=== PATIENT | female | born 1930 | race Caucasian/White ===

== ENCOUNTER → 2017-09-18 | Outpatient (CLI) | payer MEDICARE, OTHER ==
[~2017-09-18] MED LIST: ALBU90OI61 INH; AMLO5 PO; ASPI81EC PO; AZIT250 PO; Amikacin S250 MG/11 INH; Ativan1 MG PO; BUDE6HFA INH; CALCAVITD PO; CALCIUM/VITAMIN D PO; CEFD300 PO; CEPH500 PO; CLAR250 PO; CLOFAZIMINE1 GM PO; CONEST.625; CONEST.625 PO; Cheratussin AC118 ML PO; DIPATR PO; ETHA400 PO; FISH1000 PO; HYDCHL12.5 PO; HYDCHL25 PO; LORA1 PO; LORA2; LORA2 PO; LORPSEER12 PO; LOSA50 PO; LOSHYD; LOSHYD PO; LOSHYD100 PO; MECL12.5 PO; MELA3 PO; MIRT30 PO; MOXI400; MYCOBUTIN PO; MYLAN PO; Macrobid 100 M100 MG PO; Melatonin5 M1 PO; Mucinex600 MG PO; NADO20; NADOLOL PO; Norco 5-325 Ta1 EACH PO; ONDA4 PO; PHENY100ER PO; PHENYTOIN SODI200 MG PO; POTASSIUM GLUCONATE PO; Phenytoin Sodi100 MG PO; Prednisone20 MG PO; QUET100 PO; RAME8 PO; SPACE CHAMBER1 EACH MC; SULTRIDS PO; TOCO1000 PO; TOCO400; VITAMIN D-32000 UNI1 PO; Vibramycin100 MG PO; Zithromax250 MG PO; [UNRECOGNIZED DRUG - OTHER]; [UNRECOGNIZED DRUG - OTHER] PO
== END | disposition home or self-care (01) ==
LOC: OLS 14:02
DX: J47.9 Bronchiectasis, uncomplicated (principal); R05 Cough
CPT/HCPCS: 87070; 87077; 87147; 87186; 87205

== ENCOUNTER 2018-09-06 15:52 | Inpatient (IN) | payer MEDICARE, OTHER ==
[~2018-09-06] VITALS: Ht 154.9 cm; Wt 47.7 kg
[~2018-09-06 15:52] MED LIST changes: +ASPI81CH PO; -ASPI81EC PO
[2018-09-06 17:13] LABS: BASOPHILS ABSOLUTE AUTO 0.05 K/mm3 (0.00-0.23); BASOPHILS PERCENT AUTO 0 % (0-2); EOSINOPHILS PERCENT AUTO 0 % (0-6); Hematocrit 32.4 % (33.0-51.0); Hemoglobin 10.6 g/dL (11.5-16.0); IMMATURE GRAN ABSOLUTE AUTO 0.22 K/mm3 (0.00-0.10); IMMATURE GRAN PERCENT AUTO 1 % (0-1); LYMPHOCYTES ABSOLUTE AUTO 1.41 K/mm3 (0.84-5.20); LYMPHOCYTES PERCENT AUTO 5 % (21-46); MONOCYTES ABSOLUTE AUTO 1.88 K/mm3 (0.16-1.47); MONOCYTES PERCENT AUTO 7 % (4-13); Mean Corpuscular HGB 32.1 pg (26.0-34.0); Mean Corpuscular HGB Conc 32.7 g/dL (31.5-36.5); Mean Corpuscular Volume 98 fL (80-100); Mean Platelet Volume 10.9 fL (9.1-12.4); NEUTROPHILS ABSOLUTE AUTO 24.99 K/mm3 (1.96-9.15); NEUTROPHILS PERCENT AUTO 88 % (41-73); Platelet Count 609 K/mm3 (150-400); RDW Coefficient Variation 12.6 % (11.7-14.2); RDW Standard Deviation 45.3 fL (35.1-46.3); White Blood Cell Count 28.55 K/mm3 (4.00-11.30)
[2018-09-06 17:22] LABS: Source, Urine Clean Catch
[2018-09-06 17:35] LABS: Alanine Aminotransfer (ALT/SGP 48 U/L (12-78); Albumin, Blood 2.7 g/dL (3.4-5.0); Albumin/Globulin Ratio 0.5 (0.8-1.8); Alk Phos 237 U/L (50-136); Anion Gap 7 mmol/L (6-16); Aspartate Aminotrans (AST/SGOT 59 U/L (12-37); Bilirubin, Total 0.5 mg/dL (0.1-1.0); Blood Urea Nitrogen 22 mg/dL (8-24); Bun/Creatinine Ratio 27.9 (12.0-20.0); CO2, Blood 28 mmol/L (21-32); Calcium, Blood 8.9 mg/dL (8.5-10.1); Chloride, Blood 109 mmol/L (98-108); Creatinine, Blood 0.79 mg/dL (0.40-1.00); Glomerular Filtration Rate >60 (60-); Glucose, Blood 175 mg/dL (70-99); Potassium, Blood 3.4 mmol/L (3.5-5.5); Sodium, Blood 144 mmol/L (136-145); Total Protein, Blood 7.7 g/dL (6.4-8.2)
[2018-09-06 17:37] LABS: Appearance, Urine Clear (Clear); Blood, Urine 1+ (Neg); Color, Urine Amber (P-Yellow); Glucose Qualitative, Urine Neg (Neg); Ketones, Urine 1+ (Neg); Leukocyte Esterase, Urine 3+ (Neg); Nitrite, Urine Neg (Neg); Protein, Urine 3+ (Neg); Urobilinogen, Urine 2+ (Normal)
[2018-09-06 17:43] LABS: BASOPHILS PERCENT MAN 0 % (0-2); EOSINOPHILS PERCENT MAN 0 % (0-6); LYMPHOCYTES ABSOLUTE MAN 1.99 K/mm3 (0.84-5.20); LYMPHOCYTES PERCENT MAN 7 % (21-46); METAMYELOCYTE ABSOLUTE MAN 0.28 K/mm3 (0.00-0.00); METAMYELOCYTE PERCENT MAN 1 % (0-0); MONOCYTES ABSOLUTE MAN 1.71 K/mm3 (0.16-1.47); MONOCYTES PERCENT MAN 6 % (4-13); NEUTROPHILS ABSOLUTE MAN 24.55 K/mm3 (1.96-9.15); SEG NEUTROPHILS PERCENT MAN 86 % (41-73); TOTAL CELLS COUNTED 100
[2018-09-06 17:47] LABS: Bilirubin, Urine 1+ (Neg)
[2018-09-06 17:48] LABS: Bacteria Many /hpf; Mucus Mod ({null, 0-Heavy}); Squamous Epithelial Cells Few /hpf (Few)
[2018-09-06] MEDS ORDERED: SERT100 PO (19:14)
[2018-09-06] MEDS ORDERED: LOSA50 (19:14)
[2018-09-06 19:48] LABS: International Normalized Ratio 1.36; Prothrombin Time Results 13.8 Sec (9.7-11.5)
--- NOTE | 2018-09-07 04:35 | NUR ---
SHIFT SUMMARY PT ER ADMIT THIS SHIFT FOR UTI. PT ALERT AND ORINTED TO SELF, FAMILY, PLACE, AND FOLLOWING DIRECTIONS. PT UANBLE TO STATE YEAR, AND IS EASILY FORGETFUL. PT UP TO THE BATHROOM USING THE FWW WITH 1 PA. GAIT IS WEAK AND SLIGHTLY UNSTEADY. SOB WITH EXERTION. PRODUCITVE COUGH WITH THICK YELLOW SPUTUM. LUNGS DIMINISHED. IVF INFUSING ORDERED. PT VOIDING WITHOUT DIFFICULTY. PT PUSHES CALL LIGHT FREQUENTLY AND ASKS FOR VARIOUS THINGS. DOES NOT CALL WHEN NEEDING TO GO TO THE BATHROOM AND WILL JUST JUMP OUT OF BED. BED ALARM IN PLACE. HELP DESK SUPPORT SPECIALIST MADE AWARE FOR POSSIBLE SCU PLACEMENT. ADMISSION COMPLETE. WILL CONTINUE TO MONITOR AND REPORT TO ONCOMING RN.
[2018-09-07 04:51] LABS: BASOPHILS ABSOLUTE AUTO 0.03 K/mm3 (0.00-0.23); BASOPHILS PERCENT AUTO 0 % (0-2); EOSINOPHILS PERCENT AUTO 0 % (0-6); Hematocrit 26.2 % (33.0-51.0); Hemoglobin 8.7 g/dL (11.5-16.0); IMMATURE GRAN ABSOLUTE AUTO 0.19 K/mm3 (0.00-0.10); IMMATURE GRAN PERCENT AUTO 1 % (0-1); LYMPHOCYTES ABSOLUTE AUTO 1.75 K/mm3 (0.84-5.20); LYMPHOCYTES PERCENT AUTO 8 % (21-46); MONOCYTES ABSOLUTE AUTO 2.14 K/mm3 (0.16-1.47); MONOCYTES PERCENT AUTO 9 % (4-13); Mean Corpuscular HGB 32.1 pg (26.0-34.0); Mean Corpuscular HGB Conc 33.2 g/dL (31.5-36.5); Mean Corpuscular Volume 97 fL (80-100); Mean Platelet Volume 11.6 fL (9.1-12.4); NEUTROPHILS ABSOLUTE AUTO 18.72 K/mm3 (1.96-9.15); NEUTROPHILS PERCENT AUTO 82 % (41-73); Platelet Count 515 K/mm3 (150-400); RDW Coefficient Variation 12.5 % (11.7-14.2); RDW Standard Deviation 43.6 fL (35.1-46.3); Red Blood Cell Count 2.71 M/mm3 (3.80-5.20); White Blood Cell Count 22.83 K/mm3 (4.00-11.30)
[2018-09-07 05:24] LABS: Anion Gap 7 mmol/L (6-16); Blood Urea Nitrogen 17 mg/dL (8-24); Bun/Creatinine Ratio 26.2 (12.0-20.0); CO2, Blood 25 mmol/L (21-32); Calcium, Blood 7.9 mg/dL (8.5-10.1); Chloride, Blood 114 mmol/L (98-108); Creatinine, Blood 0.65 mg/dL (0.40-1.00); Glomerular Filtration Rate >60 (60-); Glucose, Blood 157 mg/dL (70-99); Potassium, Blood 3.5 mmol/L (3.5-5.5); Sodium, Blood 146 mmol/L (136-145)
[2018-09-07 11:34] LABS: Adenovirus F 40/41 Not Detected (NOT DETECT); Astrovirus Not Detected (NOT DETECT); Campylobacter Sp Not Detected (NOT DETECT); Cryptosporidium Not Detected (NOT DETECT); Cyclospora Cayetanensis Not Detected (NOT DETECT); E. Coli O157 Not Detected (NOT DETECT); Entamoeba Histolytica Not Detected (NOT DETECT); Enteroaggregative E. coli-EAEC Not Detected (NOT DETECT); Enteropathogenic E. coli-EPEC Not Detected (NOT DETECT); Enterotoxigenic E. coli-ETEC Not Detected (NOT DETECT); Giardia Lamblia Not Detected (NOT DETECT); Norovirus GI/GII Not Detected (NOT DETECT); Plesiomonas Shigelloides Not Detected (NOT DETECT); Rotavirus A Not Detected (NOT DETECT); Salmonella Sp Not Detected (NOT DETECT); Sapovirus Not Detected (NOT DETECT); Shiga Toxin-prod E. coli-STEC Not Detected (NOT DETECT); Shigella/Enteroin E. coli-EIEC Not Detected (NOT DETECT); Vibrio Cholerae Not Detected (NOT DETECT); Vibrio Sp Not Detected (NOT DETECT); Yersinia Enterocolitica Not Detected (NOT DETECT)
--- NOTE | 2018-09-07 17:32 | NUR ---
NO ACUTE CHANGES NOTED THIS SHIFT. PT IS VERY PLEASANT AND MILDLY CONFUSED. VERY IMPULSIVE, GETTING OOB WITHOUT CALLING. PT IS UNSTEADY ON HER FEET AND HAS BEEN FALLING FREQUENTLY AT HOME. BED ALARM ARMED. PT'S DAUGHTER IN ROOM EARLY AFTERNOON AND PT MUCH CALMER WHILE DAUGHTER AT BEDSIDE. NO C/O OF PAIN, DAUGHTER REQUESTED BREATHING TREATMENTS FROM DR SÁNCHEZ. PT UP IN CHAIR WAITING FOR DINNER, CHAIR ALARM IN PLACE. WILL CONTINUE TO MONITOR AND REPORT TO ONCOMING RN
--- NOTE | 2018-09-07 18:10 | NUR ---
HOME MEDICATION DAUGHTER BROUGHT PT HOME MEDICATION CLOFAZIMINE IN, ORDER OBTAINED FROM DR SÁNCHEZ FOR HER TO USE PER HOME. SENT TO PHARMACY FOR VERIFICATION AND PT RECEIVED MED WITH HER DINNER
--- NOTE | 2018-09-07 22:16 | NUR ---
STATUS UPDATE PATIENT UNABLE TO BE ORIENTED TO CALL LIGHT USE. DISCUSSED WITH HOSPITALIST AND MAY PLACE IN [facility]I IF PATIENT BECOMES UNSAFE. PATIENT VERY LIGHT SO BED ALARM SETS OFF WHEN SHE READJUSTS POSITION. PLACED ON LOWEST SENSITIVITY AND SITTING OUTSIDE ROOM. WILL CONTINUE TO MONITOR.
--- NOTE | 2018-09-08 04:45 | NUR ---
STATUS UPDATE PATIENT SLEPT OFF AND ON THROUGH THE NIGHT. HAS PERIODS OF CONFUSION WHEN SHE WAKES TO WHERE SHE WANTS TO GO BACK TO HER DAUGHTERS HOUSE AND CAN'T BE REORIENTED. IS EASY TO REDIRECT UNLESS HYPERFOCUSED. GIVEN ATIVAN DUE TO FREQUENCY OF GETTING OUT OF BED UNSAFELY AND CONFUSION. PATIENT CONVINCED IT WAS TIME TO START THE DAY AND TAKE HER 0800 MEDICATIONS REGARDLESS OF TIME. WILL CONTINUE TO MONITOR.
--- NOTE | 2018-09-08 05:24 | NUR ---
SHIFT SUMMARY PATIENT SLEPT OFF AND ON THROUGH THE NIGHT. RECEIVED ORDER FOR ASHANTI VEST BUT WAS ABLE TO REDIRECT PATIENT AND HAVE NOT NEEDED TO PLACE IT AT THIS TIME. PLAN THAT WAS DISCUSSED WITH DAUGHTER PREVIOUSLY WAS TO PLACE IN BACK [place] BUT UNABLE TO ACCOMODATE THAT PLAN. PATIENT GIVEN ATIVAN DUE TO CONFUSION AND HYPERFOCUSING ON TURNING THE LIGHT IN THE HALLWAY OFF. STATES SHE CAN'T SLEEP ANYMORE WITH IT ON. TOLERATED WELL. WILL PASS ON FOR DAY SHIFT TO DISCUSS WITH DAUGHTER USE OF ASHANTI VEST IF MOM CONTINUES TO BE UNSAFE AT NIGHT. NO QUESTIONS OR CONCERNS MENTIONED BY DAUGHTER OR PATIENT DURING SHIFT. WILL CONTINUE TO MONITOR UNTIL SHIFT HANDOFF.
[2018-09-08 05:28] LABS: BASOPHILS ABSOLUTE AUTO 0.04 K/mm3 (0.00-0.23); BASOPHILS PERCENT AUTO 0 % (0-2); EOSINOPHILS ABSOLUTE AUTO 0.13 K/mm3 (0.00-0.68); EOSINOPHILS PERCENT AUTO 1 % (0-6); Hematocrit 28.5 % (33.0-51.0); Hemoglobin 9.3 g/dL (11.5-16.0); IMMATURE GRAN ABSOLUTE AUTO 0.17 K/mm3 (0.00-0.10); IMMATURE GRAN PERCENT AUTO 1 % (0-1); LYMPHOCYTES ABSOLUTE AUTO 2.52 K/mm3 (0.84-5.20); LYMPHOCYTES PERCENT AUTO 15 % (21-46); MONOCYTES ABSOLUTE AUTO 1.19 K/mm3 (0.16-1.47); MONOCYTES PERCENT AUTO 7 % (4-13); Mean Corpuscular HGB 31.6 pg (26.0-34.0); Mean Corpuscular HGB Conc 32.6 g/dL (31.5-36.5); Mean Corpuscular Volume 97 fL (80-100); Mean Platelet Volume 11.8 fL (9.1-12.4); NEUTROPHILS ABSOLUTE AUTO 13.28 K/mm3 (1.96-9.15); NEUTROPHILS PERCENT AUTO 77 % (41-73); Platelet Count 606 K/mm3 (150-400); RDW Coefficient Variation 12.6 % (11.7-14.2); RDW Standard Deviation 44.8 fL (35.1-46.3); Red Blood Cell Count 2.94 M/mm3 (3.80-5.20); White Blood Cell Count 17.33 K/mm3 (4.00-11.30)
[2018-09-08 05:56] LABS: Anion Gap 8 mmol/L (6-16); Blood Urea Nitrogen 16 mg/dL (8-24); Bun/Creatinine Ratio 25.3 (12.0-20.0); CO2, Blood 24 mmol/L (21-32); Calcium, Blood 8.2 mg/dL (8.5-10.1); Chloride, Blood 112 mmol/L (98-108); Creatinine, Blood 0.63 mg/dL (0.40-1.00); Glomerular Filtration Rate >60 (60-); Glucose, Blood 116 mg/dL (70-99); Potassium, Blood 3.5 mmol/L (3.5-5.5); Sodium, Blood 144 mmol/L (136-145)
[2018-09-08] MEDS ORDERED: CEPH500 PO (15:07)
--- NOTE | 2018-09-08 15:25 | NUR ---
PT DISCHARGED AT 1530 WITH DAUGHTER TO TRANSPORT. PT HAS IMPROVED A LOT FORM THIS AM. PT STRUGGLING START OF SHIFT TO GIVE DATE BECAME MUCH MORE ALERT AND WAS AOX4 PRIOR TO LEAVING. TRANSFERING WITH WALKER VERY WELL AND WAS CALLING APPROPRIATLEY WHEN NEEDING HELP. ALL PAPERS REVIEWED AND EDUCTIONAL MATERIAL SENT. AID ESCORTED PT OUT TO S ENTRANCE IN WHEEL CHAIR. NO DISTRESS NOTED.
[2018-10-14] MEDS ORDERED: LORA1 PO (23:37)
[2018-10-14] MEDS ORDERED: CHOL10002 PO (23:39)
[2018-10-14] MEDS ORDERED: Hair, Skin & N1 EACH PO (23:40)
[2018-10-14] MEDS ORDERED: Calcium 600 +1 EAC1 PO (23:41)
[2018-10-14] MEDS ORDERED: AMIKACIN SULFATE INH (23:42)
[2018-10-19] MEDS ORDERED: ROBITUSSIN COU237 ML PO (10:59)
[2018-10-19] MEDS ORDERED: VANCOMYCIN HCL750 MG IV (10:59)
[2018-10-19] MEDS ORDERED: DOXY100 PO (11:00)
[2018-11-03] MEDS ORDERED: ONDA4ODT MM (00:13)
== END 2018-09-08 15:23 | disposition home or self-care (01) | DRG 689 ==
LOC: ER 15:52 → MEDS 20:54 → ER 21:53 → MEDS 21:53 → ENPENDDIS 09-08 12:00 → MEDS 09-08 15:23
PROVIDERS: Hospitalist; Physician Assistant; ADMIT Hospitalist
DX: N39.0 Urinary tract infection, site not specified (principal); G92 Toxic encephalopathy; A31.0 Pulmonary mycobacterial infection; I10 Essential (primary) hypertension; F03.90 Unspecified dementia, unspecified severity, without behavioral disturbance, psychotic disturbance, mood disturbance, and anxiety; F32.9 Major depressive disorder, single episode, unspecified; E78.5 Hyperlipidemia, unspecified; Z91.81 History of falling; B95.2 Enterococcus as the cause of diseases classified elsewhere
CPT/HCPCS: 36415; 71046; 80048; 80053; 81001; 83605; 84484; 85025; 85610; 85730; 87040; 87077; 87086; 87186; 87507; 93005; 93010; 94640; 94760; 96361; 96365; 97116; 97162; 97165; 97530; 99285-25; G8978; G8979; G8987; G8988; J0696; J1650; J7030

== ENCOUNTER 2018-10-14 17:34 | Inpatient (IN) | payer MEDICARE, OTHER ==
[~2018-10-14] VITALS: Ht 154.9 cm; Wt 52.1 kg
[~2018-10-14 17:34] MED LIST changes: +LOSA50; +SERT100 PO
[2018-10-14 18:22] LABS: BASOPHILS ABSOLUTE AUTO 0.06 K/mm3 (0.00-0.23); BASOPHILS PERCENT AUTO 0 % (0-2); EOSINOPHILS ABSOLUTE AUTO 0.04 K/mm3 (0.00-0.68); EOSINOPHILS PERCENT AUTO 0 % (0-6); Hematocrit 27.1 % (33.0-51.0); Hemoglobin 9.1 g/dL (11.5-16.0); IMMATURE GRAN ABSOLUTE AUTO 0.22 K/mm3 (0.00-0.10); IMMATURE GRAN PERCENT AUTO 1 % (0-1); LYMPHOCYTES ABSOLUTE AUTO 1.44 K/mm3 (0.84-5.20); LYMPHOCYTES PERCENT AUTO 6 % (21-46); MONOCYTES ABSOLUTE AUTO 1.83 K/mm3 (0.16-1.47); MONOCYTES PERCENT AUTO 7 % (4-13); Mean Corpuscular HGB Conc 33.6 g/dL (31.5-36.5); Mean Corpuscular Volume 95 fL (80-100); Mean Platelet Volume 10.3 fL (9.1-12.4); NEUTROPHILS ABSOLUTE AUTO 22.54 K/mm3 (1.96-9.15); NEUTROPHILS PERCENT AUTO 86 % (41-73); Platelet Count 561 K/mm3 (150-400); RDW Standard Deviation 49.1 fL (35.1-46.3); Red Blood Cell Count 2.84 M/mm3 (3.80-5.20); White Blood Cell Count 26.13 K/mm3 (4.00-11.30)
[2018-10-14 18:42] LABS: Alanine Aminotransfer (ALT/SGP 42 U/L (12-78); Albumin, Blood 2.1 g/dL (3.4-5.0); Albumin/Globulin Ratio 0.4 (0.8-1.8); Alk Phos 190 U/L (50-136); Anion Gap 8 mmol/L (6-16); Aspartate Aminotrans (AST/SGOT 82 U/L (12-37); Bilirubin, Total 0.3 mg/dL (0.1-1.0); Blood Urea Nitrogen 26 mg/dL (8-24); Bun/Creatinine Ratio 33.5 (12.0-20.0); CO2, Blood 24 mmol/L (21-32); Calcium, Blood 8.1 mg/dL (8.5-10.1); Chloride, Blood 111 mmol/L (98-108); Creatinine, Blood 0.78 mg/dL (0.40-1.00); Globulin, Blood 4.7 g/dL (2.2-4.0); Glomerular Filtration Rate >60 (60-); Glucose, Blood 180 mg/dL (70-99); Potassium, Blood 3.8 mmol/L (3.5-5.5); Sodium, Blood 143 mmol/L (136-145); Total Protein, Blood 6.8 g/dL (6.4-8.2)
[2018-10-14 19:33] LABS: Influenza A Negative (NEGATIVE); Influenza B Negative (NEGATIVE)
[2018-10-14 20:08] LABS: Source, Urine Clean Catch
[2018-10-14 20:52] LABS: Appearance, Urine Clear (Clear); Bilirubin, Urine Neg (Neg); Blood, Urine Neg (Neg); Color, Urine Yellow (P-Yellow); Glucose Qualitative, Urine Neg (Neg); Ketones, Urine Neg (Neg); Leukocyte Esterase, Urine 3+ (Neg); Nitrite, Urine Neg (Neg); Protein, Urine 2+ (Neg); Urobilinogen, Urine 1+ (Normal)
[2018-10-14 21:03] LABS: Bacteria Rare /hpf; Red Blood Cells, Urine Not Seen /hpf (0-2); Squamous Epithelial Cells Few /hpf (Few)
[2018-10-14] MEDS ORDERED: LORA1 PO ×2 (23:37)
[2018-10-14] MEDS ORDERED: CHOL10002 PO ×2 (23:39)
[2018-10-14] MEDS ORDERED: Hair, Skin & N1 EACH PO ×2 (23:40)
[2018-10-14] MEDS ORDERED: Calcium 600 +1 EAC1 PO ×2 (23:41)
[2018-10-14] MEDS ORDERED: AMIKACIN SULFATE INH ×2 (23:42)
--- NOTE | 2018-10-14 23:50 | NUR ---
UNABLE TO COMMENCE MRSA CLEARING PROTOCOL D/T PT BEING PART OF A TRIAL AT [facility] REQUIRING [facility] ANTIBIOTIC TX THAT SHE'S CURRENTLY ON. MRSA ISOLATION IN PLACE.
--- NOTE | 2018-10-15 04:38 | NUR ---
T/F AND SUMMARY: REPORT RECIEVED AND PT T/F TO ROOM 327 VIA MELCHOR W/FAMILY AT BEDSIDE. SHE'S A/OX4 BUT FORGETFULL W/CALL LIGHT REITERATTED AND BED ALARM FOR SAFETY. PT HAS HX FALLS W/RECENT LACERATION AND SUTURES W/BRUISING TO L.EYE- BROW AND CHEEKBONE. SHE'S A SBA TO TOILET W/FWW. PT IS PARTICIPANT OF STUDY AT [facility] ON SHELTER HOME ABX RE:LELIA INFECTION R/T TB. CONTACT/DROPLET ISO REQUIRED FOR HX'S OF MRSA BUT NOTHING FUTHER NEEDED FOR RESP INFECTION. PT HAS OCCASIONAL MOIST PRODUCTIVE COUGH W/GONSALES THICK SPUTUM, WILL INQUIRE IF SPECIMEN IS NEEDED BY MD. LS ARE CLEAR AND DIM IN BASES ON RA W/SPO2 WNL. SHE IS TACHYPNEIC AT TIMES W/MILD SOB NOTED W/EXERTION. CT SCHEDULED THIS AM. STAFF UNABLE TO OBTAIN GI PANEL D/T NO BM, WILL ENSURE DAY STAFF ARE AWARE. FAMILY PLANS TO BRING IN HOME MEDS FOR TX OF RESP INFECTION TODAY. SCD'S IN PLACE AND PT NSR AT 70'S PER TELEMETRY. NO ACUTE CHANGES, VSS/AFEBRILE. WILL MONITOR AND REPORT TO DAY RN.
[2018-10-15 05:12] LABS: BASOPHILS ABSOLUTE AUTO 0.06 K/mm3 (0.00-0.23); BASOPHILS PERCENT AUTO 0 % (0-2); EOSINOPHILS PERCENT AUTO 1 % (0-6); Hematocrit 27.8 % (33.0-51.0); Hemoglobin 9.1 g/dL (11.5-16.0); IMMATURE GRAN ABSOLUTE AUTO 0.23 K/mm3 (0.00-0.10); IMMATURE GRAN PERCENT AUTO 1 % (0-1); LYMPHOCYTES ABSOLUTE AUTO 2.25 K/mm3 (0.84-5.20); LYMPHOCYTES PERCENT AUTO 9 % (21-46); MONOCYTES ABSOLUTE AUTO 1.96 K/mm3 (0.16-1.47); MONOCYTES PERCENT AUTO 8 % (4-13); Mean Corpuscular HGB 31.4 pg (26.0-34.0); Mean Corpuscular HGB Conc 32.7 g/dL (31.5-36.5); Mean Corpuscular Volume 96 fL (80-100); Mean Platelet Volume 11.2 fL (9.1-12.4); NEUTROPHILS ABSOLUTE AUTO 19.98 K/mm3 (1.96-9.15); NEUTROPHILS PERCENT AUTO 81 % (41-73); Platelet Count 517 K/mm3 (150-400); RDW Coefficient Variation 14.1 % (11.7-14.2); RDW Standard Deviation 49.7 fL (35.1-46.3); White Blood Cell Count 24.68 K/mm3 (4.00-11.30)
[2018-10-15 05:39] LABS: Anion Gap 7 mmol/L (6-16); Blood Urea Nitrogen 25 mg/dL (8-24); CO2, Blood 27 mmol/L (21-32); Chloride, Blood 113 mmol/L (98-108); Glucose, Blood 123 mg/dL (70-99); Potassium, Blood 3.9 mmol/L (3.5-5.5); Sodium, Blood 147 mmol/L (136-145)
[2018-10-15 07:40] LABS: Bun/Creatinine Ratio 37.4 (12.0-20.0); Creatinine, Blood 0.67 mg/dL (0.40-1.00); Glomerular Filtration Rate >60 (60-)
--- NOTE | 2018-10-15 17:50 | NUR ---
Vivi was alone in room and welcoming of visit. She was pleasantly confused and thought I was someone she knew "from work." She expressed a deep leticia in a loving God and was appreciaitive of prayer and encouragement. We had an easy rapport. I will remain available.
--- NOTE | 2018-10-15 18:57 | NUR ---
PT MOSTLY A/O TODAY WITH PERIODIC EPISODES OF CONFUSION WHERE SHE THOUGHT SHE WAS HEARING HER DAUGHTER NEXT DOOR. DIFFICULT TO REORIENT AT THOSE TIMES. MUCH CALMER WHILE FAMILY IN ROOM. INFECTIOUS DISEASE AND PULMONARY CONSULTS CALLED TODAY. NO ACUTE CHANGES THIS SHIFT, WILL CONTINUE TO MONITOR AND REPORT TO ONCOMING RN.
--- NOTE | 2018-10-15 20:00 | NUR ---
TACHY RR OF 32 W/FAINT RLL EXP WHEEZE: RT NOTIFIED AND AMIKACIN RECIEVED. TEMP NOW 102.1 BUT PT UNDER MULTIPLE BLANKETS IN [facility]: BLANKETS REMOVED, ROOM TEMP MODIFIED AND TYLENOL PRN PROVIDED. PT HYPERTENSIVE WELL AT 168/65 AND SLIGHTLY ANXIOUS W/INCREASED CONFUSION AND DEMENTIA AT BASELINE: SCHEDULED CARDIZEM AND PRN ATIVAN GIVEN. PT ALSO RECIEVED 2100 AZITHROMYCIN AND CLOFAZIMINE. PLAN TO REASSESS VITALS IN 1 HOUR AND PEARL HAND AGRESS TO THIS. SHE IS ASYMPTOMATIC OF ACUTE DISTRESS. WILL NOTIFY MD IF NO IMPROVEMENT OR WORSENING CONDITION OBSERVED.
--- NOTE | 2018-10-15 22:02 | NUR ---
SOME IMPROVEMENT TO VITALS AND NOW VEW SCORE 4: BP 146/67, TEMP 101.4, RR 28, LS CLEAR. MD NOTIFIED OF INTITIAL VITALS AND VEW 5 AND IMPROVED ONES NOW. NO NEW ORDERS RECIEVED.
--- NOTE | 2018-10-15 22:58 | NUR ---
PT SLEEPING W/O S/S DISTRESS. BED ALARM ON FOR SAFETY.
--- NOTE | 2018-10-15 23:28 | NUR ---
VS CONTINUE TO IMPROVE AND VEW NOW 2: TEMP 99.0, RR 22, BP 134/58 AND PT SLEEPING W/O S/S ANXIETY OR DISTRESS. LS CLEAR AND DIM IN BASES. WILL ATTEMPT TO OBTAIN SPUTUM SPECIMEN IF ABLE.
--- NOTE | 2018-10-16 03:10 | NUR ---
SPUTUM SPECIMEN OBTAINED AND SENT BUT ACCIDENTALLY PROCESSED ORDER ON GI PANEL WELL W/O COLLECTION SO IT WAS REORDERED AT THIS TIME. WILL OBTAIN STOOL SPECIMEN IF ABLE BUT PT HASN'T HAD A BM.
--- NOTE | 2018-10-16 04:44 | NUR ---
SUMMARY: PT HAS HAD INCREASED CONFUSION AND HAS BEEN DISORIENTED TO PLACE AND EVENT MOST OF THE NOCTE. FREQ REMINDERS PROVIDED AND BED ALARM ON FOR SAFETY/ IMPULSIVITY OOB TO VOID. ATTENDS CHANGED PRN FOR INCONTINENCE. SHE INITIALLY BEGAN ANXIOUS, TACHYPNEIC (32), FEBRILE (102.1), HYPERTENSIVE (168/65) W/FAINT EXP WHEEZE AND VEW SCORE OF 5. PT IMPROVED T/O NOCTE TO RR 22, TEMP 99.0, BP 134/58 AND CLEAR LS AFTER RECIEVING AMIKACIN, CARDIZEM, PRN TYLENOL, PRN ATIVAN AND SCHEDULED ORAL ABX'S FOR VEW SCORE OF 2. PT SLEPT W/O S/S DISTRESS SINCE. SPUTUM SPECIMEN OBTAINED AND SENT, GONSALES THICK SPUTUM OBSERVED. PT HASN'T HAD BM SO STAFF UNABLE TO COLLECT GI PANEL. IVF INFUSING. AM LABS PENDING. PT HAS DENIED PAIN/COMPLAINTS. NO ACUTE CHANGES. WILL MONITOR/REPORT TO DAY RN.
[2018-10-16 05:33] LABS: Hematocrit 31.1 % (33.0-51.0); Hemoglobin 10.1 g/dL (11.5-16.0); Mean Corpuscular HGB 31.2 pg (26.0-34.0); Mean Corpuscular HGB Conc 32.5 g/dL (31.5-36.5); Mean Corpuscular Volume 96 fL (80-100); Mean Platelet Volume 11.2 fL (9.1-12.4); Platelet Count 609 K/mm3 (150-400); RDW Coefficient Variation 14.1 % (11.7-14.2); RDW Standard Deviation 49.8 fL (35.1-46.3); Red Blood Cell Count 3.24 M/mm3 (3.80-5.20); White Blood Cell Count 29.59 K/mm3 (4.00-11.30)
--- NOTE | 2018-10-16 05:45 | NUR ---
TYLENOL RECIEVED AGAIN FOR TEMP 100.1 AND PT C/O FEELING "COLD". BP ELEVATED TO 188/80 BUT IS POSSIBLY FEBRILE INDUCED. VEW SCORE IS 2 BUT WILL RECHECK VITALS MOMENTARILY FOR MED EFFECT.
[2018-10-16 06:21] LABS: Anion Gap 10 mmol/L (6-16); Blood Urea Nitrogen 12 mg/dL (8-24); Bun/Creatinine Ratio 21.8 (12.0-20.0); CO2, Blood 24 mmol/L (21-32); Calcium, Blood 8.1 mg/dL (8.5-10.1); Chloride, Blood 105 mmol/L (98-108); Creatinine, Blood 0.55 mg/dL (0.40-1.00); Glomerular Filtration Rate >60 (60-); Glucose, Blood 148 mg/dL (70-99); Potassium, Blood 3.8 mmol/L (3.5-5.5); Sodium, Blood 139 mmol/L (136-145)
--- NOTE | 2018-10-16 06:22 | NUR ---
BP IMPROVED TO 133/64 BUT TEMP ROUGHLY THE SAME PRIOR TO RECIEVING TYLENOL, NOW 100.9. SHE WAS GIVEN A BLANKET BY SOMEONE THOUGH WHICH HAS AGAIN BEEN REMOVED. WILL ENSURE DAY STAFF ARE AWARE.
--- NOTE | 2018-10-16 11:50 | NUR ---
Initial palliative care consult: Agueda Ariza is an 88 year old with a history of dementia, HTN, frequent falls, chronic LELIA infection, chronic sinusitis, seizures and anxiety. She is attempted to climb out of bed unassisted when I walked into her room. She is alert and oriented to name and place. She does repeat herself on occasion. Assisted her to the bathroom with a walker. She is impulsive and needs cues to stay inside the walker when she is ambulating. She has fallen at home. Agueda Ariza reports that she lives with her daughter, Precious. She states that her and son have . Her daughter and a few nieces/nephews are her only family per her report. She states that she is normally independent at home and has a wheeled walker with a seat. She reports that she does yard work in the summer and that she shops for groceries and continues to drive. Her ammonia worker in [place] has followed her for 6 yr. She denies any symptoms except "Lots of phlegm." She has a chronic cough productive to clear/white sputum this morning. She denies pain. She denies SOB, however she did appear to be more SOB with exertion after ambulating to the bathroom. When asked about her lung problem, she states "I have a lung disease." We discussed code status and she confirms that she desires to be a full code at this time. She states her daughter knows what she wants and she appeared to become uncomfortable when asked further questions about code status and AD. If would be beneficial to speak with pt's daughter and pt together re: code status. It is difficult to know with pt's history of dementia and her repeating things how much of the history she provided to this creative services writer today is accurate. Nursing reports pt's daughter was at [facility] most of the day yesterday and hasn't been to the hospital so far today. Pt was assisted back to bed with bed alarm on and call light in her reach prior to this creative services writer leaving her room. PC to follow up with pt's daughter to confirm history and functional status at home. Also need to address code status and future care planning.
--- NOTE | 2018-10-16 18:37 | NUR ---
TRANSFER REPORT GIVEN TO TONY MARTINEZ RN AND PT TRANSPORTED TO ROOM 346. FAMILY AT BEDSIDE AND ACCOMPANIED PATIENT.
--- NOTE | 2018-10-16 19:16 | NUR ---
PATIENT ORIENTED TO ROOM. DAUGHTER AT BEDSIDE. PATIENT CURRENTLY RUNNING IV VANCO. WILL CONTINUE TO MONITOR
--- NOTE | 2018-10-17 01:57 | NUR ---
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 DTR HAD BILAT OTHOPEDIC PROCEDURE AND RECIEVED TX FOR MRSA. PT ALERT AND IMPULSIVE WHILE AAWAKE. PULLING OFF TELE MONITOR AND STTEMPTING TO REMOVE HER IV. SHE HAS FALLS FREQUENTLY AT HOME AND HAS SUTURES IN FOREHEAD FROM RECENT FALL. PT IN DROPLET CONTACT ISOLATION FOR LELIA AND MRSA. UA C & S SHOWS NO SIGNIFICANT GROWTH. NO STOOL SINCE ADMISSION MONDAY. ATTEMPTING TO COLLECT GI PANEL. PT DOES HAVE VERY PRODUCTIVE COUGH OF THICK GONSALES STREAKED SPUTUM MODERATE AMOUNT AFTER CHEST PHYSIOTHERAPY. ON ROOM AIR. TEMP WNL TYLENOL AND ATIVAN GIVEN AT FAMILY REQUEST WITH HELPFUL EFFECT. HAD PULMUN CONSULT VERÓNICA MAXWELL SAW PT. INFECTIOUS DISEASE CONSULT PENDING HAS BEEN CALLED. ON TELE MONITOR NSR 75. BP HAS STABILIZED. UP WITH SBA FALL PRECAUTIONS CONTINUE. APPETITE IMPROVED.
--- NOTE | 2018-10-17 03:22 | NUR ---
PT CONTINUES WITH COUGH VERY PRODUCTIVE THICK. STOOL SAMPLE SENT FOR GI PANEL. PT WAS INCONTINENT OF SMALL AMT OF DARK BROWN FORMED STOOL AND URINE,JUMPED UP OUT OF BED ALARM ACTIVATED.FALL PREVENTED.
[2018-10-17 04:34] LABS: Adenovirus F 40/41 Not Detected (NOT DETECT); Astrovirus Not Detected (NOT DETECT); Campylobacter Sp Not Detected (NOT DETECT); Cryptosporidium Not Detected (NOT DETECT); Cyclospora Cayetanensis Not Detected (NOT DETECT); E. Coli O157 Not Detected (NOT DETECT); Entamoeba Histolytica Not Detected (NOT DETECT); Enteroaggregative E. coli-EAEC Not Detected (NOT DETECT); Enteropathogenic E. coli-EPEC Not Detected (NOT DETECT); Enterotoxigenic E. coli-ETEC Not Detected (NOT DETECT); Giardia Lamblia Not Detected (NOT DETECT); Norovirus GI/GII Not Detected (NOT DETECT); Plesiomonas Shigelloides Not Detected (NOT DETECT); Rotavirus A Not Detected (NOT DETECT); Salmonella Sp Not Detected (NOT DETECT); Sapovirus Not Detected (NOT DETECT); Shiga Toxin-prod E. coli-STEC Not Detected (NOT DETECT); Shigella/Enteroin E. coli-EIEC Not Detected (NOT DETECT); Vibrio Cholerae Not Detected (NOT DETECT); Vibrio Sp Not Detected (NOT DETECT); Yersinia Enterocolitica Not Detected (NOT DETECT)
--- NOTE | 2018-10-17 06:25 | NUR ---
PT WITH THICK MUCUS COUGHING AND SPITTING. PROVIDED SPUTUM CUP WITH LID TO CONTAIN SECRETIONS BUT PT USED ONCE AND THEN SPITTING IN KLEENEX AND IN BEDSIDE COMMODE. VERY IMPUSIVE BED ALARM SET OFF MULTIPLE TIMES AND VERY UNSTEADY ON FEET. POOR HYGIENE. CONTINUES IN ISOLATION DROPLET CONTACT WITH EXPOSURE TO SPUTUM TO STAFF POTENTIAL. LUNG MASS SEEN ON CT SCAN.
--- NOTE | 2018-10-17 19:37 | NUR ---
STILL COUGHING UP THICK MUCOUS. PATIENT STATES NO PAIN DURING SHIFT.DAUGHTER AT BEDSIDE DURING DINNER TIME. ONE LOOSE BM THIS SHIFT. PATIENT UP WITH 1 PERSON ASSIST.
--- NOTE | 2018-10-18 06:23 | NUR ---
SHIFT SUMMARY PT AWAKE ON/OFF TO USE BSC, USES CALL LIGHT APPROPRIATELY FOR ASSISTANCE. VSS. NSR W/HR 93 PER TELE CASING SEWER. FOLLOWS DIRECTIONS & IS COOPERATIVE W/CARE. DENIES N/V. REPORTS "ACHY PAIN ALLOVER," UNABLE TO ASSESS USING PAIN SCALE BUT SHOWS MANY NON-VERBAL S/S OF PAIN, MEDICATED 1X W/TYLENOL PER ORDERS & NO FURTHER DISCOMFORT HAS BEEN REPORTED. PT REPORTED SOB 1X LAST NIGHT & STATED SHE FELT "ANXIOUS," MEDICATED 1X W/ATIVAN PER ORDERS & PT NO LONGER REPORTED ANY SOB OR ANXIOUSNESS. CHEST PHYSIOTHERAPY PERFORMED BY RT. PT COUGHING UP A MODERATE AMOUNT OF CLEAR THIN MUCUS AFTERWARDS. CALL LIGHT IS IN REACH & I WILL CONT. TO MONITOR PT UNTIL DAY SHIFT RN ASSUMES CARE.
[2018-10-18 08:35] LABS: Hematocrit 28.3 % (33.0-51.0); Hemoglobin 9.4 g/dL (11.5-16.0); Mean Corpuscular HGB 30.8 pg (26.0-34.0); Mean Corpuscular HGB Conc 33.2 g/dL (31.5-36.5); Mean Platelet Volume 10.8 fL (9.1-12.4); Platelet Count 583 K/mm3 (150-400); RDW Coefficient Variation 13.8 % (11.7-14.2); RDW Standard Deviation 46.4 fL (35.1-46.3); Red Blood Cell Count 3.05 M/mm3 (3.80-5.20); White Blood Cell Count 22.19 K/mm3 (4.00-11.30)
[2018-10-18 08:36] LABS: Mean Corpuscular Volume 93 fL (80-100)
[2018-10-18 16:59] LABS: Vancomycin, Trough 6.6 ug/mL (5.0-10.0)
--- NOTE | 2018-10-18 18:32 | NUR ---
SHIFT SUMMARY NO ACUTE CHANGES THIS SHIFT. PLANS FOR PT TO DISCHARGE TOMORROW AFTER PT/OT EVALUATION. NO COMPLAINTS OF PAIN OR SHORTNESS OF BREATH THIS SHIFT. PT HAS BEEN UP TO CHAIR FOR ALL MEALS. PT HAD ANXIETY THIS AM AND WAS GIVEN ATIVAN PER EMAR. PT HAS NOT HAD ANY MORE EPISODES OF ANXIETY SINCE. NO COMPLAINTS AT THIS TIME. CALL LIGHT IN REACH. WILL CONTINUE TO MONITOR. CHAIR ALARM ON FOR SAFETY. CALL LIGHT IN REACH.
[2018-10-19 05:03] LABS: Hemoglobin 8.7 g/dL (11.5-16.0); Mean Corpuscular HGB 31.8 pg (26.0-34.0); Mean Corpuscular HGB Conc 33.5 g/dL (31.5-36.5); Mean Corpuscular Volume 95 fL (80-100); Mean Platelet Volume 10.5 fL (9.1-12.4); Platelet Count 542 K/mm3 (150-400); RDW Coefficient Variation 14.1 % (11.7-14.2); RDW Standard Deviation 47.9 fL (35.1-46.3); Red Blood Cell Count 2.74 M/mm3 (3.80-5.20); White Blood Cell Count 18.75 K/mm3 (4.00-11.30)
[2018-10-19 05:27] LABS: Anion Gap 7 mmol/L (6-16); Blood Urea Nitrogen 15 mg/dL (8-24); Bun/Creatinine Ratio 22.2 (12.0-20.0); CO2, Blood 27 mmol/L (21-32); Calcium, Blood 8.5 mg/dL (8.5-10.1); Chloride, Blood 109 mmol/L (98-108); Creatinine, Blood 0.68 mg/dL (0.40-1.00); Glomerular Filtration Rate >60 (60-); Glucose, Blood 90 mg/dL (70-99); Potassium, Blood 3.9 mmol/L (3.5-5.5); Sodium, Blood 143 mmol/L (136-145)
--- NOTE | 2018-10-19 05:52 | NUR ---
SHIFT SUMMARY PT SLEPT WELL T/O NIGHT. AOX2. VSS. DENIES N/V, PAIN OR SOB. PT MEDICATED 1X LAST NIGHT FOR MILD FEVER OF 100.1 PER ORDERS. PT HAS REPETITIVE SPEECH & WILL SAY THE SAME SENTENCE OVER MULTIPLE TIMES. PT IS VERY FORGETFUL TONIGHT & HAS FORGOTTEN TO USE CALL LIGHT FOR ASSISTANCE, BED ALARM IS PLACED. PT REPORTED FEELING ANXIOUS LAS NIGHT & WAS MEDICATED 1X W/ATIVAN PER ORDERS. WILL CONT. TO MONITOR PT UNTIL DAY SHIFT RN ASSUMES CARE.
[2018-10-19] MEDS ORDERED: VANCOMYCIN HCL750 MG IV ×2 (10:59)
[2018-10-19] MEDS ORDERED: ROBITUSSIN COU237 ML PO ×2 (10:59)
[2018-10-19] MEDS ORDERED: DOXY100 PO ×2 (11:00)
--- NOTE | 2018-10-19 14:22 | NUR ---
DISCHARGE PT DISCHARGED TO HOME WITH HOME HEALTH. THIS RN EXPLAINED DISCHARGE INSTRUCTIONS TO PT AND PT'S FAMILY. THEY REPORT THEY UNDERSTAND. DISCHARGE MEDICATIONS ALSO EXPLAINED TO FAMILY AND PT. TIME FOR KENRICK TOMORROW EXPLAINED FOR 0900 FOR IV VANCOMYCIN. EDUCATION GIVEN TO FAMILY FOR CARE OF PICC LINE. THEY REPORT THEY UNDERSTAND. PT TRANSFERRED TO PRIVATE VEHICLE VIA WHEELCHAIR BY ESCORT. PT'S BELONGINGS WITH PT AND PT'S FAMILY.
[2018-11-03] MEDS ORDERED: ONDA4ODT MM (00:13)
== END 2018-10-19 14:10 | disposition home health service (06) | DRG 871 ==
LOC: ER 17:34 → MEDS 17:35 → ENPENDDIS 10-18 17:19 → MEDS 10-19 14:10
PROVIDERS: Internal Medicine; Nurse Practitioner Acute Care; Pharmacist; Physician Assistant; ADMIT Internal Medicine
PROC: 02HV33Z Insertion of Infusion Device into Superior Vena Cava, Percutaneous Approach (ICD-10-PCS; principal; 2018-10-18)
DX: A41.02 Sepsis due to Methicillin resistant Staphylococcus aureus (principal); J15.212 Pneumonia due to Methicillin resistant Staphylococcus aureus; E87.0 Hyperosmolality and hypernatremia; E44.1 Mild protein-calorie malnutrition; A31.0 Pulmonary mycobacterial infection; Z68.1 Body mass index [BMI] 19.9 or less, adult; R26.9 Unspecified abnormalities of gait and mobility; J47.9 Bronchiectasis, uncomplicated; I10 Essential (primary) hypertension; E78.5 Hyperlipidemia, unspecified; R19.7 Diarrhea, unspecified; R91.1 Solitary pulmonary nodule; F41.1 Generalized anxiety disorder; F32.9 Major depressive disorder, single episode, unspecified; F03.90 Unspecified dementia, unspecified severity, without behavioral disturbance, psychotic disturbance, mood disturbance, and anxiety; Z88.2 Allergy status to sulfonamides; Z88.8 Allergy status to other drugs, medicaments and biological substances; Z79.82 Long term (current) use of aspirin; Z79.899 Other long term (current) drug therapy
CPT/HCPCS: 36415; 36569; 71045; 71046; 71250; 80048; 80053; 80202; 81001; 83605; 83735; 85025; 85027; 87040; 87070; 87077; 87086; 87147; 87186; 87205; 87507; 87804; 94640; 94667; 94668; 94760; 96360; 96361; 96365; 97161; 99285-25; C1751; G0378; J0278; J0692; J0696; J3370; J7030; J7050; J7120

== ENCOUNTER 2018-10-20 09:09 | Day surgery (SDC) | payer MEDICARE, OTHER ==
[~2018-10-20 09:09] MED LIST changes: +AMIKACIN SULFATE INH; +CHOL10002 PO; +Calcium 600 +1 EAC1 PO; +DOXY100 PO; +Hair, Skin & N1 EACH PO; +ROBITUSSIN COU237 ML PO; +VANCOMYCIN HCL750 MG IV
[2018-10-20 09:53] LABS: Creatinine, Blood 0.79 mg/dL (0.40-1.00); Vancomycin, Trough 10.5 ug/mL (5.0-10.0)
[2018-11-03] MEDS ORDERED: ONDA4ODT MM (00:13)
== END 2018-10-20 11:10 | disposition home or self-care (01) ==
LOC: ATC 09:09
PROVIDERS: Internal Medicine
DX: J15.212 Pneumonia due to Methicillin resistant Staphylococcus aureus (principal); E78.5 Hyperlipidemia, unspecified; I10 Essential (primary) hypertension; F03.90 Unspecified dementia, unspecified severity, without behavioral disturbance, psychotic disturbance, mood disturbance, and anxiety
CPT/HCPCS: 80202; 82565; 96365; J3370

== ENCOUNTER 2018-10-21 11:03 | Day surgery (SDC) | payer MEDICARE, OTHER ==
[2018-11-03] MEDS ORDERED: ONDA4ODT MM (00:13)
== END 2018-10-21 12:23 | disposition home health service (06) ==
LOC: ATC 11:03
DX: J15.212 Pneumonia due to Methicillin resistant Staphylococcus aureus (principal)
CPT/HCPCS: 96365; J3370

== ENCOUNTER 2018-10-22 00:14 | Day surgery (SDC) | payer MEDICARE, OTHER ==
[2018-11-03] MEDS ORDERED: ONDA4ODT MM (00:13)
== END 2018-10-22 22:37 | disposition home or self-care (01) ==
LOC: ATC 00:14
DX: A41.02 Sepsis due to Methicillin resistant Staphylococcus aureus (principal); J15.212 Pneumonia due to Methicillin resistant Staphylococcus aureus; R19.7 Diarrhea, unspecified; E87.0 Hyperosmolality and hypernatremia
CPT/HCPCS: 96365; J3370

== ENCOUNTER 2018-10-23 00:22 | Day surgery (SDC) | payer MEDICARE, OTHER ==
[2018-10-23 10:52] LABS: Creatinine, Blood 0.73 mg/dL (0.40-1.00); Vancomycin, Trough 13.5 ug/mL (5.0-10.0)
[2018-11-03] MEDS ORDERED: ONDA4ODT MM (00:13)
== END 2018-10-23 12:05 | disposition home or self-care (01) ==
LOC: ATC 00:22
PROVIDERS: Internal Medicine
DX: J15.212 Pneumonia due to Methicillin resistant Staphylococcus aureus (principal); Z88.2 Allergy status to sulfonamides; Z79.899 Other long term (current) drug therapy
CPT/HCPCS: 80202; 82565; 96365; J3370

== ENCOUNTER 2018-10-24 00:18 | Day surgery (SDC) | payer MEDICARE, OTHER ==
[2018-11-03] MEDS ORDERED: ONDA4ODT MM (00:13)
== END 2018-10-24 11:16 | disposition home or self-care (01) ==
LOC: ATC 00:18
DX: J15.212 Pneumonia due to Methicillin resistant Staphylococcus aureus (principal)
CPT/HCPCS: 96365; J3370

== ENCOUNTER 2018-10-25 00:24 | Day surgery (SDC) | payer MEDICARE, OTHER ==
[2018-11-03] MEDS ORDERED: ONDA4ODT MM (00:13)
== END 2018-10-25 11:18 | disposition home health service (06) ==
LOC: ATC 00:24
DX: J47.0 Bronchiectasis with acute lower respiratory infection (principal); J15.212 Pneumonia due to Methicillin resistant Staphylococcus aureus; R19.7 Diarrhea, unspecified; R26.9 Unspecified abnormalities of gait and mobility; E87.0 Hyperosmolality and hypernatremia; R91.1 Solitary pulmonary nodule; A31.0 Pulmonary mycobacterial infection
CPT/HCPCS: 96365; J3370

== ENCOUNTER 2018-10-26 00:24 | Day surgery (SDC) | payer MEDICARE, OTHER ==
[2018-10-26 11:04] LABS: Creatinine, Blood 0.87 mg/dL (0.40-1.00); Vancomycin, Trough 14.9 ug/mL (5.0-10.0)
[2018-11-03] MEDS ORDERED: ONDA4ODT MM (00:13)
== END 2018-10-26 11:34 | disposition home or self-care (01) ==
LOC: ATC 00:24
PROVIDERS: Family Medicine
DX: J47.0 Bronchiectasis with acute lower respiratory infection (principal); J15.212 Pneumonia due to Methicillin resistant Staphylococcus aureus; R19.7 Diarrhea, unspecified; R26.9 Unspecified abnormalities of gait and mobility; E87.0 Hyperosmolality and hypernatremia
CPT/HCPCS: 80202; 82565; 96365; J3370

== ENCOUNTER 2018-10-27 10:03 | Day surgery (SDC) | payer MEDICARE, OTHER ==
[2018-11-03] MEDS ORDERED: ONDA4ODT MM (00:13)
== END 2018-10-27 11:15 | disposition home or self-care (01) ==
LOC: ATC 10:03
DX: J15.212 Pneumonia due to Methicillin resistant Staphylococcus aureus (principal)
CPT/HCPCS: 96365; J3370

== ENCOUNTER 2018-10-28 10:06 | Day surgery (SDC) | payer MEDICARE, OTHER ==
[2018-11-03] MEDS ORDERED: ONDA4ODT MM (00:13)
== END 2018-10-28 11:10 | disposition home or self-care (01) ==
LOC: ATC 10:06
DX: J15.212 Pneumonia due to Methicillin resistant Staphylococcus aureus (principal)
CPT/HCPCS: 96365; J3370

== ENCOUNTER 2018-10-29 00:16 | Day surgery (SDC) | payer MEDICARE, OTHER ==
[2018-10-29 10:50] LABS: Creatinine, Blood 1.11 mg/dL (0.40-1.00); Vancomycin, Trough 18.6 ug/mL (5.0-10.0)
[2018-11-03] MEDS ORDERED: ONDA4ODT MM (00:13)
== END 2018-10-29 12:05 | disposition home or self-care (01) ==
LOC: ATC 00:16
PROVIDERS: Internal Medicine
DX: J47.0 Bronchiectasis with acute lower respiratory infection (principal); J15.212 Pneumonia due to Methicillin resistant Staphylococcus aureus; R19.7 Diarrhea, unspecified; R26.9 Unspecified abnormalities of gait and mobility; E87.0 Hyperosmolality and hypernatremia
CPT/HCPCS: 80202; 82565; 96365; J3370

== ENCOUNTER 2018-10-30 00:05 | Day surgery (SDC) | payer MEDICARE, OTHER ==
[2018-11-03] MEDS ORDERED: ONDA4ODT MM (00:13)
== END 2018-10-30 11:33 | disposition home or self-care (01) ==
LOC: ATC 00:05
DX: J15.212 Pneumonia due to Methicillin resistant Staphylococcus aureus (principal); Z45.2 Encounter for adjustment and management of vascular access device
CPT/HCPCS: 96365; J3370

== ENCOUNTER 2018-10-31 00:22 | Day surgery (SDC) | payer MEDICARE, OTHER ==
--- NOTE | 2018-10-31 10:30 | NUR ---
CALL TO DR BRICEÑO'S OFFICE TO SPEAK WITH CORPORATE STRATEGY ASSOCIATE. L/M WITH [employer] TO HAVE THEM CALL ME BACK. STATES THAT HOME HEALTH CAME AND SAW PT YESTERDAY AND STATED THAT THE PT WAS DEHYDRATED AND NEEDED SOME FLUIDS IV. DAUGHTER ALSO STATED THAT PT WAS WEAK, WITH NO APPETITE AND HER WALKING WAS IMPAIRED.
[2018-10-31 13:43] LABS: BASOPHILS ABSOLUTE AUTO 0.07 K/mm3 (0.00-0.23); BASOPHILS PERCENT AUTO 0 % (0-2); EOSINOPHILS ABSOLUTE AUTO 0.03 K/mm3 (0.00-0.68); EOSINOPHILS PERCENT AUTO 0 % (0-6); Hemoglobin 10.8 g/dL (11.5-16.0); IMMATURE GRAN ABSOLUTE AUTO 0.06 K/mm3 (0.00-0.10); IMMATURE GRAN PERCENT AUTO 0 % (0-1); LYMPHOCYTES ABSOLUTE AUTO 1.76 K/mm3 (0.84-5.20); LYMPHOCYTES PERCENT AUTO 10 % (21-46); MONOCYTES ABSOLUTE AUTO 0.68 K/mm3 (0.16-1.47); MONOCYTES PERCENT AUTO 4 % (4-13); Mean Corpuscular HGB 30.9 pg (26.0-34.0); Mean Corpuscular HGB Conc 31.8 g/dL (31.5-36.5); Mean Corpuscular Volume 97 fL (80-100); Mean Platelet Volume 11.3 fL (9.1-12.4); NEUTROPHILS ABSOLUTE AUTO 14.97 K/mm3 (1.96-9.15); NEUTROPHILS PERCENT AUTO 85 % (41-73); Platelet Count 679 K/mm3 (150-400); RDW Coefficient Variation 16.5 % (11.7-14.2); RDW Standard Deviation 58.5 fL (35.1-46.3); White Blood Cell Count 17.57 K/mm3 (4.00-11.30)
[2018-10-31 14:02] LABS: Albumin, Blood 2.4 g/dL (3.4-5.0); Albumin/Globulin Ratio 0.6 (0.8-1.8); Bilirubin, Total 0.6 mg/dL (0.1-1.0); Bun/Creatinine Ratio 41.8 (12.0-20.0); Calcium, Blood 8.5 mg/dL (8.5-10.1); Creatinine, Blood 1.22 mg/dL (0.40-1.00); Globulin, Blood 4.3 g/dL (2.2-4.0); Total Protein, Blood 6.7 g/dL (6.4-8.2)
[2018-11-01] MEDS ORDERED: AZIT250 PO (14:58)
[2018-11-03] MEDS ORDERED: ONDA4ODT MM (00:13)
== END 2018-10-31 12:07 | disposition home or self-care (01) ==
LOC: ATC 00:22
PROVIDERS: Internal Medicine
DX: J15.212 Pneumonia due to Methicillin resistant Staphylococcus aureus (principal); J47.9 Bronchiectasis, uncomplicated; Z88.2 Allergy status to sulfonamides; Z79.899 Other long term (current) drug therapy
CPT/HCPCS: 80053; 85025; 96361; 96365; J3370; J7030

== ENCOUNTER 2018-11-01 10:50 | Emergency (ER) | payer MEDICARE, OTHER ==
[~2018-11-01] VITALS: Ht 160 cm; Wt 47.6 kg
[2018-11-01 11:56] LABS: BASOPHILS ABSOLUTE AUTO 0.06 K/mm3 (0.00-0.23); BASOPHILS PERCENT AUTO 0 % (0-2); EOSINOPHILS ABSOLUTE AUTO 0.07 K/mm3 (0.00-0.68); EOSINOPHILS PERCENT AUTO 1 % (0-6); Hemoglobin 10.9 g/dL (11.5-16.0); IMMATURE GRAN ABSOLUTE AUTO 0.04 K/mm3 (0.00-0.10); IMMATURE GRAN PERCENT AUTO 0 % (0-1); LYMPHOCYTES ABSOLUTE AUTO 2.03 K/mm3 (0.84-5.20); LYMPHOCYTES PERCENT AUTO 14 % (21-46); MONOCYTES ABSOLUTE AUTO 0.78 K/mm3 (0.16-1.47); MONOCYTES PERCENT AUTO 5 % (4-13); Mean Corpuscular HGB 31.8 pg (26.0-34.0); Mean Corpuscular Volume 96 fL (80-100); Mean Platelet Volume 10.5 fL (9.1-12.4); NEUTROPHILS ABSOLUTE AUTO 11.35 K/mm3 (1.96-9.15); NEUTROPHILS PERCENT AUTO 79 % (41-73); Platelet Count 616 K/mm3 (150-400); RDW Coefficient Variation 16.5 % (11.7-14.2); RDW Standard Deviation 58.2 fL (35.1-46.3); Red Blood Cell Count 3.43 M/mm3 (3.80-5.20); White Blood Cell Count 14.33 K/mm3 (4.00-11.30)
[2018-11-01 12:22] LABS: Alanine Aminotransfer (ALT/SGP 44 U/L (12-78); Albumin, Blood 2.4 g/dL (3.4-5.0); Albumin/Globulin Ratio 0.6 (0.8-1.8); Alk Phos 247 U/L (50-136); Anion Gap 6 mmol/L (6-16); Aspartate Aminotrans (AST/SGOT 42 U/L (12-37); Bilirubin, Total 0.6 mg/dL (0.1-1.0); Blood Urea Nitrogen 51 mg/dL (8-24); Bun/Creatinine Ratio 44.3 (12.0-20.0); CO2, Blood 27 mmol/L (21-32); Calcium, Blood 8.5 mg/dL (8.5-10.1); Chloride, Blood 105 mmol/L (98-108); Creatinine, Blood 1.15 mg/dL (0.40-1.00); Globulin, Blood 4.3 g/dL (2.2-4.0); Glomerular Filtration Rate 47 (60-); Glucose, Blood 126 mg/dL (70-99); Potassium, Blood 4.8 mmol/L (3.5-5.5); Sodium, Blood 138 mmol/L (136-145); Total Protein, Blood 6.7 g/dL (6.4-8.2); Troponin I <0.015 ng/mL (0.000-0.040)
[2018-11-01 14:29] LABS: Source, Urine Clean Catch
[2018-11-01 14:42] LABS: Appearance, Urine Clear (Clear); Bilirubin, Urine Neg (Neg); Blood, Urine Neg (Neg); Color, Urine Yellow (P-Yellow); Glucose Qualitative, Urine Neg (Neg); Ketones, Urine Neg (Neg); Leukocyte Esterase, Urine 2+ (Neg); Nitrite, Urine Neg (Neg); Protein, Urine Neg (Neg); Specific Gravity, Urine 1.025 (1.003-1.022); Urobilinogen, Urine NORM (Normal)
[2018-11-01] MEDS ORDERED: AZIT250 PO (14:58)
[2018-11-01 15:04] LABS: Bacteria Few /hpf; Squamous Epithelial Cells Few /hpf (Few)
[2018-11-01 15:05] LABS: Calcium Oxalate Crystals Rare /hpf
[2018-11-03] MEDS ORDERED: ONDA4ODT MM (00:13)
== END 2018-11-01 17:43 | disposition home or self-care (01) ==
LOC: ER 10:50
PROVIDERS: Physician Assistant
DX: E86.0 Dehydration (principal); I10 Essential (primary) hypertension; F41.9 Anxiety disorder, unspecified; Z88.2 Allergy status to sulfonamides; Z79.899 Other long term (current) drug therapy
CPT/HCPCS: 36415; 71046; 80053; 81001; 84484; 85025; 87086; 93005; 93010; 96365; 96375; 99285-25; J2405; J3370; J7030

== ENCOUNTER 2018-11-02 00:48 | Day surgery (SDC) | payer MEDICARE, OTHER ==
[2018-11-03] MEDS ORDERED: ONDA4ODT MM (00:13)
== END 2018-11-02 11:30 | disposition home or self-care (01) ==
LOC: ATC 00:48
DX: A41.02 Sepsis due to Methicillin resistant Staphylococcus aureus (principal); J15.212 Pneumonia due to Methicillin resistant Staphylococcus aureus; J47.0 Bronchiectasis with acute lower respiratory infection; A31.2 Disseminated mycobacterium avium-intracellulare complex (DMAC); Z88.2 Allergy status to sulfonamides; Z88.8 Allergy status to other drugs, medicaments and biological substances; Z95.828 Presence of other vascular implants and grafts
CPT/HCPCS: J3370

== ENCOUNTER 2018-11-05 17:23 | Inpatient (IN) | payer MEDICARE, OTHER ==
[~2018-11-05] VITALS: Ht 157.5 cm; Wt 87.8 kg
[~2018-11-05 17:23] MED LIST changes: +ONDA4ODT MM
[2018-11-05 18:44] LABS: BASOPHILS ABSOLUTE AUTO 0.03 K/mm3 (0.00-0.23); BASOPHILS PERCENT AUTO 0 % (0-2); EOSINOPHILS PERCENT AUTO 0 % (0-6); Hematocrit 31.3 % (33.0-51.0); Hemoglobin 10.3 g/dL (11.5-16.0); IMMATURE GRAN ABSOLUTE AUTO 0.17 K/mm3 (0.00-0.10); IMMATURE GRAN PERCENT AUTO 1 % (0-1); LYMPHOCYTES ABSOLUTE AUTO 1.54 K/mm3 (0.84-5.20); LYMPHOCYTES PERCENT AUTO 5 % (21-46); MONOCYTES ABSOLUTE AUTO 2.14 K/mm3 (0.16-1.47); MONOCYTES PERCENT AUTO 8 % (4-13); Mean Corpuscular HGB Conc 32.9 g/dL (31.5-36.5); Mean Corpuscular Volume 94 fL (80-100); Mean Platelet Volume 11.3 fL (9.1-12.4); NEUTROPHILS PERCENT AUTO 86 % (41-73); Platelet Count 313 K/mm3 (150-400); RDW Coefficient Variation 16.5 % (11.7-14.2); RDW Standard Deviation 56.1 fL (35.1-46.3); Red Blood Cell Count 3.32 M/mm3 (3.80-5.20); White Blood Cell Count 28.58 K/mm3 (4.00-11.30)
[2018-11-05 19:08] LABS: Albumin/Globulin Ratio 0.5 (0.8-1.8); Bilirubin, Total 0.6 mg/dL (0.1-1.0); Bun/Creatinine Ratio 49.6 (12.0-20.0); Calcium, Blood 8.6 mg/dL (8.5-10.1); Creatinine, Blood 1.25 mg/dL (0.40-1.00); Potassium, Blood 4.6 mmol/L (3.5-5.5)
[2018-11-05 21:05] LABS: Source, Urine Catheter
[2018-11-05 21:13] LABS: Appearance, Urine Clear (Clear); Bilirubin, Urine Neg (Neg); Blood, Urine Neg (Neg); Color, Urine Amber (P-Yellow); Glucose Qualitative, Urine Neg (Neg); Ketones, Urine Neg (Neg); Leukocyte Esterase, Urine 1+ (Neg); Nitrite, Urine Neg (Neg); Protein, Urine 2+ (Neg); Urobilinogen, Urine NORM (Normal)
[2018-11-05 21:19] LABS: Amorphous Light (0-Heavy); Bacteria Few /hpf; Hyaline Casts 0-2 /lpf (0-2); Red Blood Cells, Urine 0-2 /hpf (0-2); Squamous Epithelial Cells Not Seen /hpf (Few)
[2018-11-06 06:23] LABS: BASOPHILS ABSOLUTE AUTO 0.06 K/mm3 (0.00-0.23); BASOPHILS PERCENT AUTO 0 % (0-2); EOSINOPHILS PERCENT AUTO 0 % (0-6); Hemoglobin 10.8 g/dL (11.5-16.0); IMMATURE GRAN ABSOLUTE AUTO 0.33 K/mm3 (0.00-0.10); IMMATURE GRAN PERCENT AUTO 1 % (0-1); LYMPHOCYTES PERCENT AUTO 4 % (21-46); MONOCYTES ABSOLUTE AUTO 1.97 K/mm3 (0.16-1.47); MONOCYTES PERCENT AUTO 6 % (4-13); Mean Corpuscular HGB Conc 32.7 g/dL (31.5-36.5); Mean Corpuscular Volume 98 fL (80-100); Mean Platelet Volume 11.6 fL (9.1-12.4); NEUTROPHILS ABSOLUTE AUTO 30.94 K/mm3 (1.96-9.15); NEUTROPHILS PERCENT AUTO 89 % (41-73); Platelet Count 281 K/mm3 (150-400); RDW Coefficient Variation 17.1 % (11.7-14.2); RDW Standard Deviation 60.5 fL (35.1-46.3); Red Blood Cell Count 3.38 M/mm3 (3.80-5.20)
[2018-11-06 06:44] LABS: Bun/Creatinine Ratio 48.2 (12.0-20.0); Calcium, Blood 8.8 mg/dL (8.5-10.1); Creatinine, Blood 1.14 mg/dL (0.40-1.00); Potassium, Blood 4.3 mmol/L (3.5-5.5)
--- NOTE | 2018-11-06 16:06 | NUR ---
SHIFT SUMMARY RECEIVED HANDOFF FROM ED NURSE SHIRA Sim AT 1245 HOURS. PT ADMITTED FOR METABOLIC ENCEPHALOPATHY, MAY HAVE ORAL THRUSH. PT'S CARE IS PROVIDED BY HER DAUGHTER AT HOME. PT IS A FULL CODE. HX:VERY RECENT PNUEMONIA,DEMENTIA, HTN, SEIZURES, ANXIETY, CHRONIC LELIA INFECTION (POSSIBLY LEADING TO LUNG ATELECTASIS). SHE HAS AN UNDOCUMENTED 22 IV IN UPPER LEFT SHOULDER. (I DID ENTER IT IN EMAR - ER PLACED THAT IV). PT ARRIVED ON FLOOR WNL, FAMILY ORIENTED TO UNIT. PT IS CONFUSED, IRRITABLE. PT IS A FULL CODE. SHE IS ON DROPLET/CONTACT ISOLATION PRECAUTIONS FOR MRSA IN THE SPUTUM (2019). PALLIATIVE CARE IS COMING TO DISCUSS CODE STATUS AND CARE PLAN WITH FAMILY AT THIS TIME.
--- NOTE | 2018-11-06 17:21 | NUR ---
[facility]IAL [facility] CLINICAL VISIT. Met with pt's karrie and dakota at bedside, while pt dosed and woke intermittently. Pt is an 88 year old cachectic, frail female with PMH of dementia, frequent falls at home and year long decreased interest in eating and intake with 20 pound weight loss over past year per karrie. Pt currently has increased confusion, weakness, somnolence and infection/? pneumonia and now new lung masses, per Karrie. Karrie uncertain pt would want tx for these new massess ifShe determined to be cancer. Vivi lives with and is cared for by her daughter, claudia and DAKOTA. Karrie is her medical POA. Discussed pt's current s/s, care, goals of care and recent hx. Karrie and dakota expressed they are concerned about side effects of vancomycin being used to treat her infection. We discussed code status and goals of care, advanced care planning and options for care. Karrie receptive when asked if she would like to talk again tomorrow after reviewing POLST form and booklet on comfort care and life sustaining treatments. Karrie and DAKOTA request change of code status to DNR after our conversation. Report given to RN and on my visit and VO obtained and entered for change of code status to DNR. Will f/u with s/s reassessment tomorrow and cont conversation with family as planned with them.
--- NOTE | 2018-11-06 18:10 | NUR ---
PT REFUSES TO EAT EVALUATION ANALYST INFORMS ME THAT PT IS ONLY DRINKING HER MILK, REFUSES TO EAT.
[2018-11-07 04:56] LABS: BASOPHILS ABSOLUTE AUTO 0.03 K/mm3 (0.00-0.23); BASOPHILS PERCENT AUTO 0 % (0-2); EOSINOPHILS ABSOLUTE AUTO 0.01 K/mm3 (0.00-0.68); EOSINOPHILS PERCENT AUTO 0 % (0-6); Hematocrit 26.2 % (33.0-51.0); Hemoglobin 8.7 g/dL (11.5-16.0); IMMATURE GRAN ABSOLUTE AUTO 0.16 K/mm3 (0.00-0.10); IMMATURE GRAN PERCENT AUTO 1 % (0-1); LYMPHOCYTES ABSOLUTE AUTO 1.78 K/mm3 (0.84-5.20); LYMPHOCYTES PERCENT AUTO 8 % (21-46); MONOCYTES ABSOLUTE AUTO 1.68 K/mm3 (0.16-1.47); MONOCYTES PERCENT AUTO 8 % (4-13); Mean Corpuscular HGB 31.5 pg (26.0-34.0); Mean Corpuscular HGB Conc 33.2 g/dL (31.5-36.5); Mean Corpuscular Volume 95 fL (80-100); Mean Platelet Volume 11.7 fL (9.1-12.4); NEUTROPHILS ABSOLUTE AUTO 17.99 K/mm3 (1.96-9.15); NEUTROPHILS PERCENT AUTO 83 % (41-73); Platelet Count 246 K/mm3 (150-400); RDW Coefficient Variation 16.8 % (11.7-14.2); RDW Standard Deviation 57.7 fL (35.1-46.3); Red Blood Cell Count 2.76 M/mm3 (3.80-5.20); White Blood Cell Count 21.65 K/mm3 (4.00-11.30)
[2018-11-07 05:13] LABS: Alanine Aminotransfer (ALT/SGP 20 U/L (12-78); Albumin, Blood 1.7 g/dL (3.4-5.0); Albumin/Globulin Ratio 0.5 (0.8-1.8); Alk Phos 189 U/L (50-136); Anion Gap 6 mmol/L (6-16); Aspartate Aminotrans (AST/SGOT 12 U/L (12-37); Bilirubin, Total 0.5 mg/dL (0.1-1.0); Blood Urea Nitrogen 43 mg/dL (8-24); Bun/Creatinine Ratio 46.1 (12.0-20.0); CO2, Blood 28 mmol/L (21-32); Calcium, Blood 8.5 mg/dL (8.5-10.1); Chloride, Blood 113 mmol/L (98-108); Creatinine, Blood 0.93 mg/dL (0.40-1.00); Globulin, Blood 3.1 g/dL (2.2-4.0); Glomerular Filtration Rate >60 (60-); Glucose, Blood 127 mg/dL (70-99); Potassium, Blood 3.6 mmol/L (3.5-5.5); Sodium, Blood 147 mmol/L (136-145); Total Protein, Blood 4.8 g/dL (6.4-8.2)
--- NOTE | 2018-11-07 05:14 | NUR ---
SHIFT SUMMARY PT AWAKE ON/OFF T/O NIGHT. ALERT TO SELF/FAMILY ONLY. PT VERY CONFUSED W/HX DEMENTIA. PT CALLS OUT "[facility]" & HAS TRIED TO GET OOB MULTIPLE TIMES SETTING OFF BED ALARM. WHEN ASKED WHY PT IS GETTING OOB SHE HAS NONSENSICAL SPEECH & STATES "I NEED TO OPEN MY GLASSES" OR "I NEED TO CLOSE THE VENETIAN BLINDS." PT REPORTS SEEING GLASSES & OTHER OBJECTS IN HER BED WHEN ALL PERSONAL BELONGINGS ARE ON SIDE TABLE. PT MEDICATED 1X W/TYLENOL FOR NON-VERBAL S/S OF PAIN SUCH : RESTLESS, MOANING & GRIMACING. ONCE TOLD SHE WAS RECIEVING TYLENOL PT VERBALLY REPORTED PAIN ALLOVER BODY. PT TOOK MEDICATIONS WHOLE IN APPLESAUCE FINE & I DECIDED TO GIVE THICKENED LIQUIDS TO DRINK BECAUSE WHEN PT SIPPED ON THIN LIQUIDS SHE WOULD COUGH AFTERWARDS, WILL REPORT THIS TO ONCOMING NURSE. OTHERWISE VSS & NO S/S OF N/V OR SOB. CALL LIGHT IS IN REACH & BED ALARM IS ON, WC PT UNTIL DAY SHIFT RN ASSUMES CARE.
--- NOTE | 2018-11-07 07:19 | NUR ---
ASSUMED CARE: PT RESTING QUIETLY AT THIS TIME. NO NEEDS OR CONCERNS NOTED.
--- NOTE | 2018-11-07 11:23 | NUR ---
DIETARY IN WITH PT. FAMILY AT BEDSIDE
--- NOTE | 2018-11-07 12:37 | NUR ---
PT'S DAUGHTER AND SON IN LAW AT BEDSIDE. SPEECH THERAPIST SPOKE WITH THEM ABOUT PT'S SITUATION. YONY FROM PALLIATIVE CARE STATES SHE WILL BE BY TO SEE THEM BY 1PM. THEY ARE AWARE. DR BHAGAT AWARE THAT FAMILY IS AT BEDSIDE AND SAID HE WOULD COME BY IF HE IS ABLE TO. SITTING UPRIGHT IN CHAIR WITH WALL SUCTION AVAILABLE
--- NOTE | 2018-11-07 18:19 | NUR ---
Visit to room initially. Pt sitting up in chair after lunch meal. Pt not interested in eating much per daughter. Multiple family members present, nieces, daughter and natty. Karrie requests to meet outside of room to review and complete a POLST, discuss goals of care and hospice, dc planning discussion. Pt slightly anxious and agitated and wanting to get up. Multiple family members are able to redirect her. I had spoken to ST prior to my visit. ST had evaluated this am and discussed findings with karrie, Precious, and felt pt was experiencing late stage dementia by her assessement. This was further discussed with Precious as we reviewed each section of the POLST form in detail and what that meant in relationship to her mom's prognosis and likely benefit (or not) from multiple treatments the family had discussed with drs and on POLST. AFter meeting with pt and family, report called to Dr and orders entered for Hospice on d/c. Report given to sales performance manager in person. Pt's karrie requests [facility] hospice. Her mom is on [facility]. They will need a hospital bed and BSC and equipment set up at karrie's home prior to discharge. I discussed comfort care with Precious and she had reviewed literature I had given her last night. Decision made that we will continue supportive care at this time as her resp status has improved and plan for hospice care to start in the home after d/c, unless there is a change in status indicating comfort care needed prior to d/c. Lengthy, supportive listening and encouragement given to daughter as she processed and talked thru her decisions for her mom. I thanked her for her devotion and difficult decision making as the gift that it is for her mom. Precious expressed grief and also anger that her brother, who she lost to heart disease was not here to help her with their mom. Karrie resolute in her belief that the decisions made today are the best for her mom and wants to have her home, comfortable and not suffering. She reiterated her fear that some of the tx, including antibiotics were not contributing to her mom's quality of life and may be harming her. I asked her to discuss her specific concerns about specific medications with her mom's dr. Pal care to follow to assist with advanced care, EOL care planning and s/s mgmt.
--- NOTE | 2018-11-07 18:21 | NUR ---
SHIFT SUMMARY: PT HAS BEEN CONFUSED THROUGHOUT SHIFT. SHE HAS HAD CHAIR OR BED ALARMS ON THIS SHIFT. FAMILY AT BEDSIDE. PLAN IS TO GO HOME ON HOSPICE.
--- NOTE | 2018-11-08 05:26 | NUR ---
SHIFT SUMMARY PT ORIENTED TO SELF. REPEATS QUESTIONS AND WILL KEEP PULLING OFF O2 NC. RA O2 SAT WAS 94%. BED ALARM IN USE. WILL TRY TO GET OOB HERSELF CONFUSED AND FORGETFUL. INCONT OF URINE. SHE WAS ABLE TO GET SOME SLEEP T/O NIGHT ON AND OFF.
--- NOTE | 2018-11-08 11:22 | NUR ---
Pt. is in bed confused and talking to herself offered prayers for the pt.
--- NOTE | 2018-11-08 16:31 | NUR ---
Met with Luciano, pt's dtr's SO, at bedside. Pt is restless and insisting we dress her and let her go home. Luciano states that pt's dtr is very ill and stuck at home. He states they plan to take Vivi home with hospice once they get a hospital bed in the home. I gently tried to explain "comfort care" while hospitalized. He states that Sonny doesn't want this and would prefer pt be home. Pt is quite confused and very frail. Luciano admits they have been overwhelmed trying to care for pt 03/04. I provided empathic listening and gentle disability counselor to good effect. Encouraged self-care while pt hospitalized. I will remain available.
--- NOTE | 2018-11-08 19:11 | NUR ---
SHIFT SUMMARY. PT ORIENTATED TO SELF, TRANSFERS WITH ONE ASSIST TO CHAIR FOR MEALS. DR. CUMMINS DECREASED HTN MEDS TODAY PT WAS BRADYCARDIC LAST NIGHT. AWAITING DISCHARGE PLAN TO BE COMPLETED. SS INVOLVED. NO NEW CHANGES.
--- NOTE | 2018-11-09 03:18 | NUR ---
PT BEEN VERY RESTLESS, TRYING TO GET OOB NOT REDIRECTABLE. HIGH FALL RISK. GOT ORDER FOR ASHANTI VEST. MEDICATED FOR PAIN C TYLENOL. PT TRANSFERRED TO ROOM 347. REPORT GIVEN TO SEGUNDO MCRAE
--- NOTE | 2018-11-09 06:37 | NUR ---
11/09/18 0615 AWAKENED FOR ROUNDS AND TURNING. YELLING FOR "MARGERET". TALKING TO SELF IN ROOM. INCONTINENT OF URINE AND BRIEF CHANGED. TAKING FLUID WITH SIPPY CUP. MOVED TO SPECIAL CARE UNIT DUE TO INCREASED CONFUSION AND YELLING. ASHANTI ORTIZT ON SINCE 2149.
[2018-11-09] MEDS ORDERED: ONDA4 PO (09:54)
[2018-11-09] MEDS ORDERED: Dilantin 100 m100 MG PO (09:55)
[2018-11-09] MEDS ORDERED: PHENYTOIN SODI200 MG PO (09:56)
[2018-11-09] MEDS ORDERED: ACET325 PO (09:57)
--- NOTE | 2018-11-09 13:29 | NUR ---
Met pt in bed and family members in the room on visit Pt. is doing welland may go home today .Offered prayers
--- NOTE | 2018-11-09 15:42 | NUR ---
DISCHARGE NOTE- PT DISCHARGED HOME ON HOSPICE, FAMILY WAS GIVEN VERBAL AND WRITTEN DISCHARGE INSTRUCTIONS AND ACKNOWLEDGED UNDERSTANDING OF THEM. PT GIVEN HOME MED BREATHING Tx AT THE TIME OF DISCHARGE. QUESTIONS ASKED ABOUT PT CARE NEEDS AND ANSWERED BY STAFF, FAMILY HAD NO FURTHER QUESTIONS AT THE TIME OF DISCHARGE, CONTACT INFO PROVIDED IF QUESTIONS ARRISE. PT TAKEN BY W/C TRANSPORT TO HER DAUGHTERS HOME. KARINA IS RIDING WITH HER IN THE TRANSPORT.
== END 2018-11-09 12:27 | disposition hospice, home (50) | DRG 92 ==
LOC: ER 17:23 → ERHOLD 20:19 → MEDS 11-06 13:11 → ENPENDDIS 11-09 09:30 → MEDS 11-09 12:27
PROVIDERS: Emergency Medicine; Hospitalist; ADMIT Hospitalist
DX: G92 Toxic encephalopathy (principal); A31.0 Pulmonary mycobacterial infection; G40.209 Localization-related (focal) (partial) symptomatic epilepsy and epileptic syndromes with complex partial seizures, not intractable, without status epilepticus; N17.9 Acute kidney failure, unspecified; E87.0 Hyperosmolality and hypernatremia; N18.4 Chronic kidney disease, stage 4 (severe); F41.9 Anxiety disorder, unspecified; J47.9 Bronchiectasis, uncomplicated; E86.0 Dehydration; F03.90 Unspecified dementia, unspecified severity, without behavioral disturbance, psychotic disturbance, mood disturbance, and anxiety; G56.00 Carpal tunnel syndrome, unspecified upper limb; E78.5 Hyperlipidemia, unspecified; Z66 Do not resuscitate; Z51.5 Encounter for palliative care; R91.8 Other nonspecific abnormal finding of lung field; T42.4X5A Adverse effect of benzodiazepines, initial encounter; Y92.9 Unspecified place or not applicable; I12.9 Hypertensive chronic kidney disease with stage 1 through stage 4 chronic kidney disease, or unspecified chronic kidney disease
CPT/HCPCS: 36415; 71046; 80048; 80053; 81001; 83880; 84145; 84484; 85025; 87040; 87086; 92610; 93005; 93010; 94640; 94760; 96361; 96365; 99285-25; J0696; J7030; P9612